=== PATIENT | female | born 1965 | race Hispanic/Latino ===

== ENCOUNTER 2017-06-26 08:21 | Emergency (ER) | payer OTHER ==
[2017-06-26 08:41] VITALS: BP 147/102
[2017-06-26] MEDS ORDERED: ATROVENT IH ONE (08:44)
[2017-06-26] MEDS ORDERED: XOPENEX IH ONE (08:44)
[2017-06-26 09:25] LABS: Basophils # (Auto) 0.1 K/mm3 (0.0-0.1); Basophils % (Auto) 1.2 % (0.0-1.8); Eosinophils # (Auto) 0.1 K/mm3 (0.0-0.4); Eosinophils % (Auto) 1.3 % (0.0-4.3); Hematocrit 44.5 % (30.3-42.9); Hemoglobin 15.5 gm/dl (10.1-14.3); Lymphocytes % (Auto) 26.1 % (13.4-35.0); Mean Corpuscular HGB Conc 35 % (30-34); Mean Corpuscular Hemoglobin 30 pg (28-32); Mean Corpuscular Volume 87 fl (79-97); Monocytes # (Auto) 0.5 K/mm3 (0.0-0.8); Monocytes % (Auto) 6.7 % (0.0-7.3); Platelet Count 135 K/mm3 (140-440); Red Cell Distribution Width 13.4 % (13.2-15.2)
[2017-06-26 09:36] LABS: INR 0.93 (0.87-1.13)
[2017-06-26 09:41] LABS: BUN/Creatinine Ratio 16; Blood Urea Nitrogen 14 mg/dL (7-17); Calcium 9.9 mg/dL (8.4-10.2); Hemolysis Index 4
--- NOTE | 2017-06-26 09:46 | XRay Report ---
ROUTINE CHEST, TWO VIEWS: SOB. PA and lateral views demonstrate the heart and mediastinal contour to be of normal size and shape. The lungs are clear and fully expanded and the soft tissues and bony structures are normal. No interval change when compared to prior exam of August 12, 2015. IMPRESSION: Normal study.
== END 2017-06-26 23:15 | disposition left against medical advice (07) ==
LOC: ED 08:21
DX: R06.02 Shortness of breath (principal); Z53.21 Procedure and treatment not carried out due to patient leaving prior to being seen by health care provider
CPT/HCPCS: 36415; 71046; 80048; 83880; 85025; 85610